=== PATIENT | female | born 1960 | race Caucasian/White ===

== ENCOUNTER 2025-03-05 12:45 | Inpatient (IN) | payer MEDICAID ==
[~2025-03-05] VITALS: Ht 157.5 cm; Wt 104.8 kg
[2025-03-05] MEDS ORDERED: ATOR20TA PO (13:12)
[2025-03-05] MEDS ORDERED: ALOG12.5 PO (13:12)
[2025-03-05] MEDS ORDERED: MECL-225 PO ×2 (13:12)
[2025-03-05] MEDS ORDERED: METF-442 PO (13:12)
[2025-03-05] MEDS ORDERED: GABA-532 PO (13:12)
[2025-03-05] MEDS ORDERED: ASPI81TA31 PO (13:12)
[2025-03-05] MEDS ORDERED: LISI-782 PO (13:12)
[2025-03-05] MEDS ORDERED: CLON0.1T PO (13:12)
[2025-03-05] MEDS ORDERED: AMLO-212 PO (13:12)
[2025-03-05] MEDS ORDERED: HYDR25TA4 PO (13:12)
[2025-03-05] MEDS ORDERED: CALC-167 PO (13:12)
[2025-03-05] MEDS ORDERED: POTA8TAB3 PO (13:12)
[2025-03-05] MEDS ORDERED: METO-357 PO (13:12)
[2025-03-05] MEDS ORDERED: MAGN200T5 PO (13:12)
[2025-03-05] MEDS ORDERED: NITROGLYCERIN OINT 1 GM PACKET TP ONE (13:20)
[2025-03-05] MEDS ORDERED: ASPIRIN 325 MG TABLET ONE (13:21)
[2025-03-05 13:25] LABS: BASOPHILS % (AUTO) 0.3 % (0.0-2.0); DIFFERENTIAL COMMENT 1; EOSINOPHILS # (AUTO) 0.1 K/uL (0.0-0.7); EOSINOPHILS % (AUTO) 0.8 % (0.0-7.0); HEMATOCRIT 42.7 % (31.2-41.9); HEMOGLOBIN 13.9 g/dL (10.9-14.3); LYMPHOCYTES # (AUTO) 3.9 K/uL (0.8-4.8); MEAN CORPUSCULAR HGB CONC 33 g/dL (32.3-35.6); MONOCYTES # (AUTO) 0.6 K/uL (0.1-1.30); MONOCYTES % (AUTO) 5.1 % (0.0-11.0); NEUTROPHILS # (AUTO) 7.6 K/uL (1.8-8.9); NEUTROPHILS % (AUTO) 61.8 % (38.5-71.5); PLATELET COUNT (AUTO) 364 K/uL (179-408); RED BLOOD CELL COUNT(AUTO) 4.64 MIL/uL (3.63-4.92); WHITE BLOOD COUNT (AUTO) 12.3 K/uL (3.8-11.8)
[2025-03-05] MEDS: NITROGLYCERIN OINT 1 GM PACKET TP ONE (13:25)
[2025-03-05] MEDS: ASPIRIN 325 MG TABLET PO ONE (13:25)
[2025-03-05 13:36] LABS: CARBON DIOXIDE 33 mmol/L (21-32); CHLORIDE 101 mmol/L (98-107); CREATININE 0.5 mg/dL (0.6-1.3); GLUCOSE 174 mg/dL (74-106); SODIUM SERUM 141 mmol/L (136-145); UREA NITROGEN, BLOOD 11 mg/dL (7-18)
[2025-03-05 13:48] LABS: ALANINE AMINOTRANSFERASE 27 U/L (14-59); ALBUMIN 3.4 g/dL (3.4-5.0); ALKALINE PHOSPHATASE 73 U/L (50-136); ASPARTATE AMINOTRANSFERASE 12 U/L (15-37); BILIRUBIN,DIRECT 0.1 mg/dL (0.0-0.2); BILIRUBIN,TOTAL 0.4 mg/dL (0.2-1.0); NT-PRO BNP 265 pg/mL (0-125); TOTAL PROTEIN, SERUM 7.6 g/dL (6.4-8.2)
[2025-03-05] MEDS ORDERED: ENOXAPARIN SODIUM 80 MG/0.8 ML DISP.SYRIN SQ ONE (16:14)
[2025-03-05] MEDS: ENOXAPARIN SODIUM 80 MG/0.8 ML DISP.SYRIN SQ ONE (16:16)
[2025-03-05] MEDS ORDERED: ACETAMINOPHEN 325 MG TABLET PO PRN (19:45)
[2025-03-05] MEDS ORDERED: ONDANSETRON 4 MG/2 ML VIAL IV PRN (19:45)
[2025-03-05] MEDS ORDERED: REMEDY ESSENTIAL ZINC PASTE 113 GM TP PRN (19:45)
[2025-03-05] MEDS ORDERED: MAGNESIUM HYDROXIDE 30 ML LIQUID UDC PO PRN (19:45)
[2025-03-05] MEDS ORDERED: DEXTROSE 50% 50 ML DISP.SYRIN IV PRN (20:00)
[2025-03-05 20:14] LABS: *BILIRUBIN,URIN NEGATIVE (NEGATIVE); *CLARITY,URINE CLEAR (CLEAR); *COLOR,URINE YELLOW (YELLOW); *KETONES,URINE TRACE (NEGATIVE); *UROBILINOGEN,URINE 0.2 E.U./dl (NORMAL); LEUKOCYTE ESTERASE ,URINE NEGATIVE (NEGATIVE); NITRITE, URINE NEGATIVE (NEGATIVE); UGLUCOSE NEGATIVE (NEGATIVE)
[2025-03-05 20:26] LABS: *BLOOD, URINE TRACE (NEGATIVE); *PROTEIN,URINE 3+ (NEGATIVE)
[2025-03-05 20:32] LABS: BACTERIA,URINE MODERATE /HPF (NONE SEEN); SQUAMOUS EPITHELIAL CELL,UR MANY /HPF (NONE SEEN)
[2025-03-05] MEDS: METOPROLOL SUCCINATE XL 50 MG TAB.SR.24H PO SCH (21:23)
[2025-03-05] MEDS: BLOOD SUGAR DIAGNOSTIC 1 EACH STRIP VI SCH (21:28)
[2025-03-06] VITALS (7 sets, daily range): BP systolic 123–150; BP diastolic 58–76; TEMP 97.8–98.8; O2SAT 94–99
[2025-03-06 07:43] LABS: BASOPHILS # (AUTO) 0.1 K/UL (0.0-0.2); BASOPHILS % (AUTO) 0.7 % (0.0-2.0); DIFFERENTIAL COMMENT 1; EOSINOPHILS # (AUTO) 0.1 K/uL (0.0-0.7); EOSINOPHILS % (AUTO) 0.9 % (0.0-7.0); HEMATOCRIT 41.6 % (31.2-41.9); HEMOGLOBIN 13.7 g/dL (10.9-14.3); LYMPHOCYTES # (AUTO) 3.6 K/uL (0.8-4.8); LYMPHOCYTES % (AUTO) 29.9 % (20.5-51.5); MEAN CORPUSCULAR HEMOGLOBIN 30.5 uug (24.7-32.8); MEAN CORPUSCULAR HGB CONC 33 g/dL (32.3-35.6); MEAN CORPUSCULAR VOLUME 92.3 fL (75.5-95.3); MONOCYTES # (AUTO) 0.6 K/uL (0.1-1.30); MONOCYTES % (AUTO) 4.9 % (0.0-11.0); NEUTROPHILS # (AUTO) 7.7 K/uL (1.8-8.9); NEUTROPHILS % (AUTO) 63.6 % (38.5-71.5); PLATELET COUNT (AUTO) 334 K/uL (179-408); RED BLOOD CELL COUNT(AUTO) 4.51 MIL/uL (3.63-4.92); RED CELL DISTRIBUTION WIDTH 13.7 % (12.3-17.7); WHITE BLOOD COUNT (AUTO) 12.2 K/uL (3.8-11.8)
[2025-03-06 08:19] LABS: CALCIUM 8.7 mg/dL (8.5-10.1); CREATININE 0.6 mg/dL (0.6-1.3); MAGNESIUM 2.1 mg/dL (1.8-2.4); POTASSIUM 4.6 mmol/L (3.5-5.1)
[2025-03-06] MEDS: ASPIRIN 81 MG TAB.CHEW PO SCH (09:16)
[2025-03-06] MEDS: GABAPENTIN 100 MG CAPSULE PO SCH (09:16)
[2025-03-06] MEDS: CALCIUM CARB/VITAMIN D 500MG-200UNITS TABLET PO SCH (09:16)
[2025-03-06] MEDS: AMLODIPINE 5 MG TABLET PO SCH (09:16)
[2025-03-06] MEDS: LISINOPRIL 5 MG TABLET PO SCH (09:17)
[2025-03-06] MEDS: ENOXAPARIN SODIUM 80 MG/0.8 ML DISP.SYRIN SQ SCH (09:19)
[2025-03-06] MEDS: INSULIN REGULAR, HUMAN 1000 UNIT/10 ML VIAL SQ PRN (09:22)
[2025-03-06] MEDS ORDERED: ACET325T53 PO (17:28)
[2025-03-06] MEDS ORDERED: PANT40TA2 PO (17:28)
[2025-03-06] MEDS ORDERED: ATOR40TA PO (17:28)
[2025-03-06] MEDS ORDERED: ENOX80DI SQ (17:28)
[2025-03-06] MEDS ORDERED: NICO-780 TD (17:28)
[2025-03-06] MEDS ORDERED: METO-357 PO (17:28)
[2025-03-06] MEDS ORDERED: ATORVASTATIN 40 MG TABLET PO SCH (21:00)
== END 2025-03-06 19:29 | disposition short-term general hospital (02) | DRG 199 ==
LOC: ER 12:45 → TELE3 19:42
PROVIDERS: ADMIT Nurse Practitioner Acute Care; ATTEND Internal Medicine
DX: I16.0 Hypertensive urgency (principal); I21.A1 Myocardial infarction type 2; I50.30 Unspecified diastolic (congestive) heart failure; I25.10 Atherosclerotic heart disease of native coronary artery without angina pectoris; F17.210 Nicotine dependence, cigarettes, uncomplicated; J20.8 Acute bronchitis due to other specified organisms; J44.0 Chronic obstructive pulmonary disease with (acute) lower respiratory infection; E11.9 Type 2 diabetes mellitus without complications; E66.01 Morbid (severe) obesity due to excess calories; R82.81 Pyuria; I11.0 Hypertensive heart disease with heart failure; E78.00 Pure hypercholesterolemia, unspecified; Z79.899 Other long term (current) drug therapy; Z68.41 Body mass index [BMI] 40.0-44.9, adult; Z71.3 Dietary counseling and surveillance; Z79.84 Long term (current) use of oral hypoglycemic drugs; Z79.82 Long term (current) use of aspirin; R06.00 Dyspnea, unspecified
CPT/HCPCS: 36415; 71045; 83735; 84100; 84484; 85025; 85730; 87086; 93307; A4606; A4663; G0378; J1650; J1815